=== PATIENT | female | born 1980 | race African-American/Black ===

== ENCOUNTER 2024-06-03 10:34 | Outpatient (RCR) | payer OTHER | END 2024-06-07 | LOC: PT 10:34 | PROVIDERS: ATTEND Physician Assistant | DX: M17.11 Unilateral primary osteoarthritis, right knee (principal) ==

== ENCOUNTER 2024-06-24 10:00 | Outpatient (RCR) | payer OTHER | END 2024-07-08 | LOC: PT 10:00 | PROVIDERS: ATTEND Physician Assistant | DX: M17.11 Unilateral primary osteoarthritis, right knee (principal) ==

== ENCOUNTER 2024-09-22 14:48 | Observation (INO) | payer BC, OTHER ==
[~2024-09-22] VITALS: Ht 185.4 cm; Wt 99.8 kg
[2024-09-22 14:55] VITALS: TEMP 97.2
[2024-09-22 15:29] LABS: BASOPHILS % 0.7 % (0.0-1.0); EOSINOPHILS # (AUTO) 0.2 (0.0-0.4); EOSINOPHILS % 5.2 % (0.0-6.0); HEMATOCRIT 35.4 % (34.2-44.1); HEMOGLOBIN 10.8 g/dL (12.0-16.0); LYMPHOCYTES # (AUTO) 1.4 (1.0-3.2); LYMPHOCYTES % 30.3 % (18.0-39.1); MEAN CORPUSCULAR HEMOGLOBIN 23.9 pg (28-32); MEAN CORPUSCULAR HGB CONC 30.5 g/dL (31-35); MEAN CORPUSCULAR VOLUME 78.5 fL (81-99); MONOCYTES # (AUTO) 0.4 (0.2-0.8); MONOCYTES % 9.6 % (4.4-11.3); NEUTROPHILS # (AUTO) 2.4 (2.1-6.9); PLATELET COUNT 240 x10e3/uL (140-360); RED BLOOD COUNT 4.51 x10e6/uL (3.6-5.1); RED CELL DISTRIBUTION WIDTH 19.8 % (11.7-14.4); WHITE BLOOD COUNT 4.46 x10e3/uL (4.8-10.8)
[2024-09-22 15:44] LABS: INR 0.95; PROTHROMBIN TIME 13.3 seconds (11.9-14.5)
[2024-09-22 15:45] LABS: PARTIAL THROMBOPLASTIN TIME 29.7 seconds (23.8-35.5)
[2024-09-22 15:53] LABS: ALANINE AMINOTRANSFERASE 14 IU/L (0-55); ALBUMIN 3.7 g/dL (3.5-5.0); ALBUMIN/GLOBULIN RATIO 0.8 (0.8-2.0); ALKALINE PHOSPHATASE 219 IU/L (40-150); ANION GAP 18.4 mmol/L (8-16); BILIRUBIN,TOTAL 0.5 mg/dL (0.2-1.2); BLOOD UREA NITROGEN 20 mg/dL (7-26); BUN/CREATININE RATIO 3 (6-25); CALCIUM 9.5 mg/dL (8.4-10.2); CARBON DIOXIDE 29 mmol/L (22-29); CHLORIDE 96 mmol/L (98-107); CREATINE KINASE 85 IU/L (29-168); CREATININE, SERUM 5.87 mg/dL (0.57-1.11); EST GLOMERULAR FILTRATION RATE 8 ML/MIN (>=60); GLUCOSE 75 mg/dL (74-118); MAGNESIUM 2.3 MG/DL (1.3-2.1); POTASSIUM 4.4 mmol/L (3.5-5.1); SODIUM 139 mmol/L (136-145); TOTAL PROTEIN 8.3 g/dL (6.5-8.1)
[2024-09-22 15:58] LABS: TROPONIN I 0.027 ng/mL (0-0.300)
[2024-09-22] MEDS: ONDANSETRON HCL INJ 2MG/ML 2ML 2 MG/ML VIAL IV STA (16:28)
[2024-09-22] MEDS: LABETALOL HCL 5 MG/ML 20ML VIAL IV STA (16:28)
[2024-09-22] MEDS ORDERED: ONDANSETRON HCL INJ 2MG/ML 2ML 2 MG/ML VIAL IV PRN (16:30)
[2024-09-22] MEDS ORDERED: NITROGLYCERIN 0.4 MG SUBL SL PRN (16:30)
[2024-09-22] MEDS: LORAZEPAM INJ 2 MG/ML VIAL IV ONE (17:32)
[2024-09-22] MEDS: MAGNESIUM/ALUMINUM/SIMETHICONE 30 ML UDC PO ONE (18:45)
[2024-09-22] MEDS: BELLADONNA ALK/PHENOBARBITAL 5 ML UDC PO ONE (18:45)
[2024-09-22 18:46] VITALS: RESP 18
[2024-09-22] MEDS: Morphine 2mg Syringe 2 MG/ML SYR IV PRN (19:33)
[2024-09-22 20:00] VITALS: BP 136/74; PULSE 69; RESP 18; TEMP 97.8; O2SAT 100
[2024-09-22 20:30] VITALS: BP 136/88; PULSE 69; RESP 18; TEMP 98; O2SAT 100
[2024-09-22 21:18] VITALS: PULSE 69
[2024-09-22 22:00] VITALS: BP 136/74; PULSE 69; RESP 18; TEMP 97.8; O2SAT 100
[2024-09-22] MEDS: CYCLOBENZAPRINE HCL 10 MG TAB PO PRN (23:13)
[2024-09-23] VITALS (8 sets, daily range): BP systolic 136–176; BP diastolic 74–94; PULSE 63–78; RESP 16–21; TEMP 97.8–98.8; O2SAT 97–100
[2024-09-23 01:02] LABS: TROPONIN I 0.029 ng/mL (0-0.300)
[2024-09-23 07:00] LABS: BASOPHILS % 0.7 % (0.0-1.0); EOSINOPHILS # (AUTO) 0.3 (0.0-0.4); EOSINOPHILS % 5.7 % (0.0-6.0); HEMATOCRIT 35.7 % (34.2-44.1); HEMOGLOBIN 10.5 g/dL (12.0-16.0); LYMPHOCYTES # (AUTO) 1.4 (1.0-3.2); LYMPHOCYTES % 31.3 % (18.0-39.1); MEAN CORPUSCULAR HGB CONC 29.4 g/dL (31-35); MONOCYTES # (AUTO) 0.5 (0.2-0.8); MONOCYTES % 11.7 % (4.4-11.3); NEUTROPHILS # (AUTO) 2.2 (2.1-6.9); NEUTROPHILS % 50.4 % (38.7-80.0); PLATELET COUNT 174 x10e3/uL (140-360); RED BLOOD COUNT 4.37 x10e6/uL (3.6-5.1); RED CELL DISTRIBUTION WIDTH 19.1 % (11.7-14.4); WHITE BLOOD COUNT 4.35 x10e3/uL (4.8-10.8)
[2024-09-23 07:08] LABS: MEAN CORPUSCULAR VOLUME 81.7 fL (81-99)
[2024-09-23 07:18] LABS: CALCIUM 8.7 mg/dL (8.4-10.2); CHOL/HDL RATIO 4.5 (3.0-3.6); CREATININE, SERUM 7.62 mg/dL (0.57-1.11)
[2024-09-23 07:42] LABS: TROPONIN I 0.028 ng/mL (0-0.300)
[2024-09-23] MEDS ORDERED: CARVEDILOL12.5 MG PO (07:44)
[2024-09-23] MEDS ORDERED: HYDRALAZINE HCL50 MG PO (07:44)
[2024-09-23] MEDS ORDERED: MELATONIN 3 MG TAB PO PRN (08:15)
[2024-09-23] MEDS ORDERED: ALBUTEROL/IPRATROPIUM 3 ML NEB NEB PRN (08:15)
[2024-09-23] MEDS ORDERED: ACETAMINOPHEN 325 MG TAB PO PRN (08:15)
[2024-09-23] MEDS ORDERED: DEXTROSE 50% SYRINGE 50 ML IV PRN (08:15)
[2024-09-23] MEDS: METOPROLOL TARTRATE 25 MG TAB PO SCH (09:18)
[2024-09-23] MEDS: SENNOSIDES 8.6 MG TAB PO SCH (09:18)
[2024-09-23] MEDS: ASPIRIN 81 MG ENTERIC COATED PO SCH (09:18)
[2024-09-23] MEDS: HEPARIN SOD (PORCINE) 5,000 UNIT/ML VIAL SC SCH (09:22)
[2024-09-23] MEDS: INSULIN REGULAR, HUMAN 100 UNIT/1 ML SQ SCH (11:30)
[2024-09-23] MEDS: FAMOTIDINE 20 MG TAB PO SCH (17:20)
[2024-09-24] VITALS (7 sets, daily range): BP systolic 137–179; BP diastolic 72–99; PULSE 71–89; RESP 16–20; TEMP 97.9–98.3; O2SAT 95–100
[2024-09-24] MEDS: METOPROLOL TARTRATE INJ 1 MG/ML VIAL IV PRN (06:41)
[2024-09-24] MEDS ORDERED: SODIUM CHLORIDE 0.9% 1000ML 1,000 ML ONE (08:40)
[2024-09-24] MEDS ORDERED: HEPARIN SOD (PORCINE) 1000 UNIT/ML SDV IV PRN ×4 (09:30→12:15)
[2024-09-24] MEDS ORDERED: SODIUM CHLORIDE 0.9% 1000ML 2,000 ML IV PRN (09:30)
[2024-09-24] MEDS ORDERED: LOPRESSOR25 MG PO (10:05)
[2024-09-24] MEDS ORDERED: ASPIRIN EC81 MG PO (10:05)
[2024-09-24] MEDS ORDERED: LIPITOR20 MG PO (10:05)
[2024-09-24] MEDS ORDERED: SENOKOT8.6 MG PO (10:05)
[2024-09-24] MEDS ORDERED: ACETAMINOPHEN325 M1 PO (10:05)
[2024-09-24] MEDS ORDERED: FAMOTIDINE20 MG PO (10:05)
[2024-09-24 10:51] LABS: BASOPHILS % 0.6 % (0.0-1.0); EOSINOPHILS # (AUTO) 0.3 (0.0-0.4); EOSINOPHILS % 5.1 % (0.0-6.0); HEMATOCRIT 33.8 % (34.2-44.1); HEMOGLOBIN 10.1 g/dL (12.0-16.0); LYMPHOCYTES # (AUTO) 1.5 (1.0-3.2); LYMPHOCYTES % 30.3 % (18.0-39.1); MEAN CORPUSCULAR HEMOGLOBIN 24.2 pg (28-32); MEAN CORPUSCULAR HGB CONC 29.9 g/dL (31-35); MEAN CORPUSCULAR VOLUME 80.9 fL (81-99); MONOCYTES # (AUTO) 0.4 (0.2-0.8); MONOCYTES % 8.2 % (4.4-11.3); NEUTROPHILS # (AUTO) 2.7 (2.1-6.9); NEUTROPHILS % 55.6 % (38.7-80.0); PLATELET COUNT 189 x10e3/uL (140-360); RED BLOOD COUNT 4.18 x10e6/uL (3.6-5.1); RED CELL DISTRIBUTION WIDTH 19.1 % (11.7-14.4); WHITE BLOOD COUNT 4.89 x10e3/uL (4.8-10.8)
[2024-09-24 11:13] LABS: ANION GAP 21.5 mmol/L (8-16); CALCIUM 8.8 mg/dL (8.4-10.2); CREATININE, SERUM 10.57 mg/dL (0.57-1.11)
[2024-09-24 11:14] LABS: POTASSIUM 5.5 mmol/L (3.5-5.1)
[2024-09-24] MEDS: METOPROLOL TARTRATE 50 MG TAB PO SCH (13:53)
[2024-09-25 15:00] LABS: HEPATITIS B CORE AB TOTAL NEGATIVE; HEPATITIS B SURFACE AG (P) NEGATIVE
== END 2024-09-24 15:15 | disposition home or self-care (01) ==
LOC: ER 15:17 → ERHOLD 16:33 → MED/SURG3 21:45
PROVIDERS: ADMIT Internal Medicine; ATTEND Internal Medicine
DX: R07.89 Other chest pain (principal); R05.9 Cough, unspecified; E87.5 Hyperkalemia; E11.22 Type 2 diabetes mellitus with diabetic chronic kidney disease; I12.0 Hypertensive chronic kidney disease with stage 5 chronic kidney disease or end stage renal disease; N18.6 End stage renal disease; Z99.2 Dependence on renal dialysis; E78.5 Hyperlipidemia, unspecified; G35 Multiple sclerosis; Z71.3 Dietary counseling and surveillance; Z68.29 Body mass index [BMI] 29.0-29.9, adult; Z71.81 Spiritual or religious counseling; Z86.73 Personal history of transient ischemic attack (TIA), and cerebral infarction without residual deficits; Z11.52 Encounter for screening for COVID-19; Z79.899 Other long term (current) drug therapy; Z79.82 Long term (current) use of aspirin
CPT/HCPCS: 36415; 70450; 71045; 80048; 80053; 80061; 82550; 82948; 83036; 83735; 84484; 84702; 85025; 85610; 85730; 86704; 86706; 87340; 93005; 93306; 94799; 99252; 99284; G0378; J1644; J2060; J2270; J2405; J2470; J7030

== ENCOUNTER 2024-12-03 13:00 | Outpatient (RCR) | payer MEDICARE, OTHER ==
[~2024-12-03 13:00] MED LIST: ACETAMINOPHEN325 M1 PO; ASPIRIN EC81 MG PO; CARVEDILOL12.5 MG PO; FAMOTIDINE20 MG PO; HYDRALAZINE HCL50 MG PO; LIPITOR20 MG PO; LOPRESSOR25 MG PO; SENOKOT8.6 MG PO
== END 2024-12-06 ==
LOC: PT 13:00
PROVIDERS: ATTEND Physician Assistant
DX: M17.11 Unilateral primary osteoarthritis, right knee (principal)

== ENCOUNTER 2025-01-04 10:00 | Outpatient (RCR) | payer MEDICARE, OTHER | END 2025-01-05 | LOC: PT 10:00 | PROVIDERS: ATTEND Physician Assistant | DX: M17.11 Unilateral primary osteoarthritis, right knee (principal); M25.561 Pain in right knee; M25.661 Stiffness of right knee, not elsewhere classified; M62.81 Muscle weakness (generalized); R26.2 Difficulty in walking, not elsewhere classified ==

== ENCOUNTER 2025-02-24 14:00 | Outpatient (RCR) | payer MEDICARE | END 2025-03-07 | LOC: PT 14:00 | PROVIDERS: ATTEND Physician Assistant | DX: M17.11 Unilateral primary osteoarthritis, right knee (principal) ==